=== PATIENT | male | born 1960 | race Caucasian/White ===

== ENCOUNTER 2024-09-12 17:15 | Emergency (ER) | payer MEDICARE, MEDICAID ==
[2024-09-12] MEDS: Ondansetron 4 MG/2 ML SDV IVPUSH ONE (18:13)
[2024-09-12 18:15] LABS: HEMATOCRIT 44.5 % (42.0-52.0); MEAN CORPUSCULAR HEMOGLOBIN 31.1 pg (28.0-32.0); MEAN CORPUSCULAR HGB CONC 33.7 g/dl (32.0-36.0); MEAN CORPUSCULAR VOLUME 92.3 fl (83.0-99.0); MEAN PLATELET VOLUME 8.5 fl (9.4-12.4); PLATELET COUNT,PLT 359 K/mm3 (150-400); RED BLOOD CELL COUNT 4.82 M/mm3 (4.52-5.90); WHITE BLOOD CELL COUNT,WBC 11.59 K/mm3 (3.9-11.3)
[2024-09-12] MEDS: HYDROmorphone 0.5 MG/0.5 ML Syringe IVPUSH ONE ×2 (18:16→20:17)
[2024-09-12] MEDS: Sodium Chloride 0.9% 10 ML Syringe FLUSH PRN (18:16)
[2024-09-12] MEDS: Sodium Chloride 0.9% 1,000 ML IV STA (18:19)
[2024-09-12 18:47] LABS: INR 0.98; PROTHROMBIN TIME 10.4 SECONDS (9.7-12.0)
[2024-09-12 18:53] LABS: BAND PERCENT MAN 2 % (0-10); BASOPHILS PERCENT MAN 1 (0.2-1.2); EOSINOPHILS PERCENT MAN 3 % (0.8-7.0); LYMPHOCYTES % ATYPICAL MANUAL 0 %; LYMPHOCYTES PERCENT MAN 18 % (20-40); MONOCYTES PERCENT MAN 1 % (2-10); PLATELET COUNT ESTIMATE ADEQUATE
[2024-09-12 19:09] LABS: LACTIC ACID 1.5 mmol/L (0.4-2.0)
[2024-09-12 19:14] LABS: A/G RATIO 0.9 (1-2); ALBUMIN 3.5 g/dl (3.4-5.0); ANION GAP 15.7 (5-15); BILIRUBIN TOTAL 0.9 mg/dL (0.2-1.0); BUN/CREATININE RATIO 18.8 (14-18); C-REACTIVE PROTEIN 1.17 mg/dL (<0.30); CALCIUM 8.5 mg/dL (8.5-10.1); CREATININE 0.8 mg/dL (0.7-1.3); EST CRCL DRUG DOSING (CG) 80.08 mL/min; POTASSIUM,K 3.7 mEq/L (3.5-5.1); PROTEIN TOTAL,TP 7.3 g/dl (6.4-8.2)
[2024-09-12] MEDS ORDERED: Sodium Chloride 0.9% 10 ML Syringe FLUSH ONE (19:43)
[2024-09-12] MEDS: Iopamidol 755 Mg/ML 100 ML Bottle IVPUSH ONE (19:44)
[2024-09-12] MEDS: Sodium Chloride 0.9% 100 ML IV SCH (19:46)
[2024-09-12] MEDS: Piperacillin/Tazobactam 4.5 GM in Sodium Chloride 0.9% 100 ML IV ONE (20:07)
[2024-09-12 20:33] LABS: APPEARANCE,URINE CLEAR (Clear); BILIRUBIN,URINE NEGATIVE (Negative); COLOR,URINE YELLOW (Yellow); GLUCOSE,URINE NEGATIVE (Negative); KETONES,URINE NEGATIVE (Negative); LEUKOCYTE ESTERASE,URINE NEGATIVE (Negative); NITRITE,URINE NEGATIVE (Negative); OCCULT BLOOD,URINE NEGATIVE (Negative); PROTEIN,URINE 1+ (Negative)
[2024-09-12 20:58] LABS: RBC,URINE 0-5 /hpf (0-5); WBC,URINE 0-5 /hpf (0-5)
[2024-09-12 20:59] LABS: BACTERIA,URINE FEW /hpf (FEW); MUCUS,URINE FEW /hpf (FEW); SQUAMOUS EPITHELIAL CELLS,UR 0-5 /hpf (0-5)
[2024-09-12] MEDS: Lisinopril 10 MG Tab PO ONE (21:30)
[2024-09-12] MEDS: Acetaminophen/oxyCODONE 325-5 MG Tab PO ONE (21:30)
[2024-09-12] MEDS: Doxycycline Monohydrate 100 MG Cap PO ONE (21:30)
[2024-09-12] MEDS: Chlorthalidone 25 MG Tab PO ONE (21:30)
[2024-09-12] MEDS: Cephalexin 500 MG Cap PO ONE (21:35)
== END 2024-09-12 21:40 | disposition home or self-care (01) ==
LOC: JD.ED 17:15
DX: K91.871 Postprocedural hematoma of a digestive system organ or structure following other procedure (principal); R10.84 Generalized abdominal pain; I10 Essential (primary) hypertension; F17.210 Nicotine dependence, cigarettes, uncomplicated; Z88.6 Allergy status to analgesic agent; Z79.899 Other long term (current) drug therapy; Z86.16 Personal history of COVID-19
CPT/HCPCS: 36415; 71275; 74177; 80053; 81001; 83605; 83880; 84484; 85007; 85027; 85610; 86140; 87040; 87070; 87205; 96361; 96365; 96375; 96376; 99285; A9270; J2405; J2543; J7030; Q9967; 99284; J1171